=== PATIENT | male | born 1950 | race Caucasian/White ===

== ENCOUNTER 2024-10-15 09:11 | Inpatient (IN) | payer MEDICARE, BC ==
--- NOTE | 2024-10-15 10:00 | ED ---
Abdominal Pain HPI - General Chief Complaint: Abdominal Pain Stated Complaint: ABD pain/back pain/vomitting Time Seen by Provider: 10/15/24 09:20 Source: patient, RN notes reviewed Mode of arrival: ambulatory Limitations: no limitations - History of Present Illness Initial Comments: This is a 74-year-old male who presents to the emergency department for abdominal pain, nausea, and vomiting. States that it started last night. Abdominal pain is in the center of the mid to upper abdomen. Patient states that his abdomen also feels distended. He had a similar episode about 6 months ago where his abdomen felt distended and he was nauseous. However, states that it resolved on its own and was not as severe. He was not evaluated at that time and is unsure what caused it. MD Complaint: abdominal pain - Related Data Home Medications Medication Instructions Recorded Confirmed Losartan Potassium [Cozaar] 25 mg PO DAILY 08/18/23 10/15/24 Rosuvastatin Calcium 5 mg PO Q48H 08/18/23 10/15/24 Allergies Allergy/AdvReac Type Severity Reaction Status Date / Time Latex, Natural Rubber AdvReac Rash/Hives Verified 10/15/24 12:50 Review of Systems ROS Statement: Those systems with pertinent positive or pertinent negative responses have been documented in the HPI. ROS Other: All systems not noted in ROS Statement are negative. Past Medical History Past Medical History: Hyperlipidemia, Hypertension Additional Past Medical History / Comment(s): Asbestosis History of Any Multi-Drug Resistant Organisms: None Reported Past Surgical History: Bowel Resection, Hernia Repair Past Psychological History: No Psychological Hx Reported Smoking Status: Never smoker Past Alcohol Use History: Occasional Past Drug Use History: None Reported General Exam Limitations: no limitations General appearance: alert, in no apparent distress Head exam: Present: atraumatic, normocephalic, normal inspection Respiratory exam: Present: normal lung sounds bilaterally. Absent: respiratory distress, wheezes, rales, rhonchi, stridor Cardiovascular Exam: Present: regular rate, normal rhythm, normal heart sounds. Absent: systolic murmur, diastolic murmur, rubs, gallop, clicks GI/Abdominal exam: Present: distended, tenderness (diffuse) Neurological exam: Present: alert, oriented X3, CN II-XII intact Psychiatric exam: Present: normal affect, normal mood Skin exam: Present: warm, dry, intact, normal color. Absent: rash Course Vital Signs 10/15/24 10/15/24 10/15/24 09:33 12:52 15:00 Temperature 97.6 F 99.0 F Pulse Rate 86 83 85 Respiratory 18 18 18 Rate Blood Pressure 158/84 145/81 147/94 O2 Sat by Pulse 96 90 L Oximetry Medical Decision Making - Medical Decision Making This is a 74-year-old male who presents to the emergency department for abdominal pain. Was pt. sent in by a medical professional or institution? @ -No Did you speak to anyone other than the patient for history? @ -No Did you review nursing and triage notes? @ -Yes, and I agree, it is accurate with regards to the patient's symptoms. Were old charts reviewed? @ -No Differential Diagnosis? @ -Differential Abdominal Pain Men: Appendicitis, cholecystitis, diverticulosis, ischemic bowel, pancreatitis, hepatitis, UTI, gastroenteritis, AAA, incarcerated hernia, bowel obstruction, constipation, inflammatory bowel, hepatitis, peptic ulcer disease, splenic infarction, perforated viscus, testicular torsion, this is not meant to be an all-inclusive list EKG interpreted by me (3pts min.)? @ -EKG interpreted by me demonstrating the following: Sinus rhythm. Ventricular rate 89 bpm, CO interval 146 ms, QRS duration 106 ms, QTc 422 ms. X-rays interpreted by me (1pt min.)? @ -Not obtained CT interpreted by me (1pt min.)? @ -CT scan of the abdomen and pelvis obtained. My interpretation identifies fluid-filled prominent small bowel loops. U/S interpreted by me (1pt. min.)? @ -Not obtained What testing was considered but not performed? (CT, X-rays, U/S, labs)? Why? @ -None What meds were considered but not given? Why? @ -None Did you discuss the management of the patient with other professionals? @ -Yes, Dr. Chavez, who accepts the patient for admission. Did you reconcile home meds? @ -Yes Was smoking cessation discussed for >3mins.? @ -No Was critical care preformed (if so, how long)? @ -No Were there social determinants of health that impacted care today? How? (Homelessness, low income, unemployed, alcoholism, drug addiction, transportation, low edu. Level, literacy, decrease access to med. care, intermediate, rehab)? @ -No Was there de-escalation of care discussed even if they declined? (Discuss DNR or withdrawal of care, Hospice)? @ -No What co-morbidities impacted this encounter? (DM, HTN, Smoking, COPD, CAD, Cancer, CVA, Hep., AIDS, mental health diagnosis, sleep apnea, morbid obesity)? @ -HTN, HLD Was patient admitted / discharged? @ -Admitted. Lab work demonstrates leukocytosis with a white blood cell count of 16.7. Lactic acid elevated 2.4. CT scan of the abdomen and pelvis demonstrates findings suggestive of small bowel obstruction versus ileus likely from an enteritis. They advised further evaluation with small bowel follow- through. Findings reviewed with the patient. Symptoms were well-controlled with medication and we avoided an NG tube for the meantime. Given the leukocytosis with possible bowel obstruction, patient was started on Zosyn. Patient admitted to medicine for further management of SBO versus ileus. Consult placed for general surgery. Case discussed with ED attending Dr. Lopes. Undiagnosed new problem with uncertain prognosis? @ -None Drug Therapy requiring intensive monitoring for toxicity (Heparin, Nitro, Insulin, Cardizem)? @ -None Were any procedures done? @ -None Diagnosis/symptom? @ -SBO vs ileus Acute, or Chronic, or Acute on Chronic? @ -Acute Uncomplicated (without systemic symptoms) or Complicated (systemic symptoms)? @ -Complicated Side effects of treatment? @ -None Exacerbation, Progression, or Severe Exacerbation] @ -Not applicable Poses a threat to life or bodily function? @ -Yes, can lead to life threatening infection - Lab Data Result diagrams: 10/15/24 12:33 10/15/24 12:33 Lab Results 10/15/24 10/15/24 10/15/24 Range/Units 12:33 12:33 12:33 WBC 16.7 H (3.8-10.6) k/uL RBC 5.62 (4.30-5.90) m/uL Hgb 18.4 H (13.0-17.5) gm/dL Hct 54.8 H (39.0-53.0) % MCV 97.5 (80.0-100.0) fL MCH 32.8 (25.0-35.0) pg MCHC 33.7 (31.0-37.0) g/dL RDW 13.0 (11.5-15.5) % Plt Count 260 (150-450) k/uL MPV 7.7 Neutrophils % 88 % Lymphocytes % 6 % Monocytes % 5 % Eosinophils % 0 % Basophils % 0 % Neutrophils # 14.8 H (1.3-7.7) k/uL Lymphocytes # 1.0 (1.0-4.8) k/uL Monocytes # 0.8 (0-1.0) k/uL Eosinophils # 0.1 (0-0.7) k/uL Basophils # 0.0 (0-0.2) k/uL Sodium 139 (137-145) mmol/L Potassium 5.1 (3.5-5.1) mmol/L Chloride 97 L (98-107) mmol/L Carbon Dioxide 30 (22-30) mmol/L Anion Gap 12 mmol/L BUN 20 (9-20) mg/dL Creatinine 1.00 (0.66-1.25) mg/dL Est GFR (CKD-EPI)AfAm 84 (>60 ml/min/1.73 sqM) Est GFR (CKD-EPI)NonAf 73 (>60 ml/min/1.73 sqM) Glucose 149 H (74-99) mg/dL Lactic Ac Sepsis Rflx Plasma Lactic Acid Erasto 2.4 H* (0.7-2.0) mmol/L Calcium 10.0 (8.4-10.2) mg/dL Total Bilirubin 2.0 H (0.2-1.3) mg/dL AST 35 (17-59) U/L ALT 43 (4-49) U/L Alkaline Phosphatase 47 (38-126) U/L Total Protein 9.6 H (6.3-8.2) g/dL Albumin 5.4 H (3.5-5.0) g/dL Amylase 57 (30-110) U/L Lipase 107 (23-300) U/L Urine Color Urine Appearance (Clear) Urine pH (5.0-8.0) Ur Specific [place] (1.001-1.035) Urine Protein (Negative) Urine Glucose (UA) (Negative) Urine Ketones (Negative) Urine Blood (Negative) Urine Nitrite (Negative) Urine Bilirubin (Negative) Urine Urobilinogen (<2.0) mg/dL Ur Leukocyte Esterase (Negative) Urine RBC (0-5) /hpf Urine WBC (0-5) /hpf Ur Squamous Epith Cells (0-4) /hpf Amorphous Sediment (None) /hpf Hyaline Casts (0-2) /lpf Urine Mucus (None) /hpf 10/15/24 10/15/24 Range/Units 12:52 13:23 WBC (3.8-10.6) k/uL RBC (4.30-5.90) m/uL Hgb (13.0-17.5) gm/dL Hct (39.0-53.0) % MCV (80.0-100.0) fL MCH (25.0-35.0) pg MCHC (31.0-37.0) g/dL RDW (11.5-15.5) % Plt Count (150-450) k/uL MPV Neutrophils % % Lymphocytes % % Monocytes % % Eosinophils % % Basophils % % Neutrophils # (1.3-7.7) k/uL Lymphocytes # (1.0-4.8) k/uL Monocytes # (0-1.0) k/uL Eosinophils # (0-0.7) k/uL Basophils # (0-0.2) k/uL Sodium (137-145) mmol/L Potassium (3.5-5.1) mmol/L Chloride (98-107) mmol/L Carbon Dioxide (22-30) mmol/L Anion Gap mmol/L BUN (9-20) mg/dL Creatinine (0.66-1.25) mg/dL Est GFR (CKD-EPI)AfAm (>60 ml/min/1.73 sqM) Est GFR (CKD-EPI)NonAf (>60 ml/min/1.73 sqM) Glucose (74-99) mg/dL Lactic Ac Sepsis Rflx Y Plasma Lactic Acid Erasto (0.7-2.0) mmol/L Calcium (8.4-10.2) mg/dL Total Bilirubin (0.2-1.3) mg/dL AST (17-59) U/L ALT (4-49) U/L Alkaline Phosphatase (38-126) U/L Total Protein (6.3-8.2) g/dL Albumin (3.5-5.0) g/dL Amylase (30-110) U/L Lipase (23-300) U/L Urine Color Yellow Urine Appearance Cloudy (Clear) Urine pH 5.5 (5.0-8.0) Ur Specific [place] 1.034 (1.001-1.035) Urine Protein 1+ H (Negative) Urine Glucose (UA) Trace H (Negative) Urine Ketones 1+ H (Negative) Urine Blood Negative (Negative) Urine Nitrite Negative (Negative) Urine Bilirubin 1+ H (Negative) Urine Urobilinogen 2.0 (<2.0) mg/dL Ur Leukocyte Esterase Negative (Negative) Urine RBC 1 (0-5) /hpf Urine WBC 1 (0-5) /hpf Ur Squamous Epith Cells <1 (0-4) /hpf Amorphous Sediment Rare H (None) /hpf Hyaline Casts 9 H (0-2) /lpf Urine Mucus Many H (None) /hpf - Radiology Data Radiology results: report reviewed, image reviewed Disposition Clinical Impression: Partial small bowel obstruction Disposition: ADMITTED IP TO THIS [facility] Referrals: Bib Fleming MD [Primary Care Provider] - 1-2 days
[2024-10-15] MEDS: MORPHINE SULFATE 4 MG/ML SYRINGE IVP STA (12:39)
[2024-10-15] MEDS: ONDANSETRON 4 MG/2 ML VIAL IVP STA (12:45)
[2024-10-15] MEDS: FAMOTIDINE 20 MG/2 ML VIAL IV STA (12:45)
[2024-10-15 13:01] LABS: ALT 43 U/L (4-49); African American GFR (CKD) 84 (>60 ml/min/1.73 sqM); Albumin 5.4 g/dL (3.5-5.0); Amylase 57 U/L (30-110); Anion Gap 12 mmol/L; Blood Urea Nitrogen 20 mg/dL (9-20); Carbon Dioxide 30 mmol/L (22-30); Chloride 97 mmol/L (98-107); Glucose 149 mg/dL (74-99); Lipase 107 U/L (23-300); Non-African American GFR(CKD) 73 (>60 ml/min/1.73 sqM); Sodium 139 mmol/L (137-145); Total Protein 9.6 g/dL (6.3-8.2)
[2024-10-15 13:03] LABS: Basophils % (A) 0 %; Eosinophils # (A) 0.1 k/uL (0-0.7); Eosinophils % (A) 0 %; HCT 54.8 % (39.0-53.0); HGB 18.4 gm/dL (13.0-17.5); Lymphocytes % (A) 6 %; MCH 32.8 pg (25.0-35.0); MCHC 33.7 g/dL (31.0-37.0); MCV 97.5 fL (80.0-100.0); Mean Platelet Volume 7.7; Monocytes # (A) 0.8 k/uL (0-1.0); Monocytes % (A) 5 %; Neutrophils # (A) 14.8 k/uL (1.3-7.7); Neutrophils % (A) 88 %; Platelet Count 260 k/uL (150-450); RBC 5.62 m/uL (4.30-5.90); WBC 16.7 k/uL (3.8-10.6)
[2024-10-15 13:07] LABS: Amorphous Sediment,Urine Rare /hpf; Appearance,Urine Cloudy (Clear); Bilirubin,Urine 1+ (Negative); Blood,Urine Negative (Negative); Color,Urine Yellow; Glucose,Urine (UA) Trace (Negative); Hyaline Casts,Urine 9 /lpf (0-2); Ketones,Urine 1+ (Negative); Leukocyte Esterase,Urine Negative (Negative); Mucus,Urine Many /hpf; Nitrite,Urine Negative (Negative); PH, Urine 5.5 (5.0-8.0); Protein,Urine 1+ (Negative); RBC,Urine 1 /hpf (0-5); Specific Gravity,Urine 1.034 (1.001-1.035); Squamous Epithelial Cell,Urine <1 /hpf (0-4); WBC,Urine 1 /hpf (0-5)
[2024-10-15 13:17] LABS: AST 35 U/L (17-59); Alkaline Phosphatase 47 U/L (38-126); Potassium 5.1 mmol/L (3.5-5.1)
[2024-10-15] MEDS: SODIUM CHLORIDE 0.9% 1,000 ML IV STA (13:27)
--- NOTE | 2024-10-15 14:24 | CT ---
EXAMINATION TYPE: CT abdomen pelvis w con CT DLP: 1023.8 mGycm, Automated exposure control for dose reduction was used. DATE OF EXAM: 10/15/2024 1:59 PM COMPARISON: Chest radiograph 08/18/2023 CLINICAL INDICATION:Male, 74 years old with history of Abdominal pain and distention; Abdominal pain and distention TECHNIQUE: Standard CT of the abdomen and pelvis following the administration of 100 cc of Isovue 3 00 IV contrast material. Coronal and sagittal reformats were performed. FINDINGS: LOWER CHEST: Thick calcified pleural plaques with pleural thickening within the bilateral lower lungs . Bilateral lower lobe linear scarring and/or atelectasis. ABDOMEN LIVER: Unremarkable GALLBLADDER AND BILE DUCTS: Unremarkable. PANCREAS: Unremarkable. SPLEEN: Unremarkable. ADRENAL GLANDS: Unremarkable. KIDNEYS AND URETERS: No evidence of hydronephrosis . The kidneys enhance symmetrically. Bilateral joel al cysts with largest measuring from the interpolar left kidney measuring up to 2.9 cm. Punctate nodu le of left renal calculus. Contrast is demonstrated within both collecting systems on the delayed pha se. PELVIS BLADDER: Underdistended, limiting evaluation. REPRODUCTIVE: Unremarkable. ABDOMEN & PELVIS STOMACH AND BOWEL: Gastric distention.Mid and proximal small bowel dilatation with air-fluid levels m easuring up to 3.5 cm in diameter. There is a focal region of mild mid short segment small bowel wall thickening which resolves on delayed imaging. There is fluid-filled prominent small bowel loops dist al to this region. Collapsed distal small bowel without focal transition point. No pneumatosis. Sigmo id diverticulosis without evidence for acute diverticulitis. Postsurgical changes with a colonic anas tomosis within the left midabdomen. The appendix is within normal limits. PERITONEUM: No evidence of pneumoperitoneum or free fluid. VASCULATURE: Mild atherosclerotic calcifications are present throughout the abdominal aorta and its b ranches. No evidence of aortic aneurysm. Pelvic phleboliths. MUSCULOSKELETAL: No acute osseous abnormalities. Degenerative changes of bilateral SI joints. LYMPH NODES: No evidence for lymphadenopathy. SOFT TISSUE/ABDOMINAL WALL: Surgical changes of the midline anterior abdominal wall with scarring. IMPRESSION: 1. Findings of partial small bowel obstruction versus ileus likely from an enteritis. Consider furth er evaluation with small bowel follow-through. 2. Colonic diverticulosis without evidence for acute diverticulitis. 3. Extensive calcified pleural plaques. 4. Nonobstructive punctate left renal calculus. [facility], , 10/15/2024 2:22 PM
[2024-10-15] MEDS: PIPERACILLIN-TAZOBACTAM 3.375 GM in SODIUM CHLORIDE 0.9% 100 ML IVPB ONE (15:08)
[2024-10-15] MEDS: LOSARTAN 25 MG TAB PO SCH (15:08)
[2024-10-15] MEDS ORDERED: HYDROcodone/APAP 5-325MG 1 EACH TAB PO PRN (15:25)
[2024-10-15] MEDS ORDERED: MORPHINE SULFATE 4 MG/ML SYRINGE IV PRN (15:25)
[2024-10-15] MEDS ORDERED: KETOROLAC 15 MG/ML 1 ML VIAL IVP PRN (15:25)
[2024-10-15] MEDS ORDERED: NALOXONE 0.4 MG/ML 1 ML VIAL IV PRN (15:25)
--- NOTE | 2024-10-15 15:43 | P.HPIM ---
History of Present Illness H&P Date: 10/15/24 History of Presenting Illness: Patient is a pleasant 74-year-old male with a past medical history of hypertension, hyperlipidemia, and previous small bowel obstruction status post bowel resection 35 years ago. Presented to the emergency department with a ief complaint of abdominal pain, nausea, and vomiting. Patient reports symptoms began approximately 10 PM last night. He reports experiencing abdominal distention over the past week and states last night experiencing diffuse abdominal pain worse in mid abdomen accompanied by recurrent episodes of nausea and vomiting. Patient reports his last bowel movement was just prior to onset of this pain and states it was normal soft and formed. Denies having any fevers, chills, diaphoresis, chest pain, palpitations, shortness of breath, hematemesis, melena, or hematochezia. Upon arrival to our facility, patient underwent evaluation in the emergency department. Vital signs upon arrival show blood pressure 158/84, heart rate 86, respiratory rate 18, temp 97.6 F, and SpO2 of 96% on room air. EKG completed showing normal sinus mechanism. Labs completed and reviewed. CBC showing leukocytosis with WBC count of 16.7. BMP showing high anion gap metabolic alkalosis with chloride of 97, bicarb of 30, and anion gap of 12. Blood glucose 149. Lactic acid 2.4. Liver profile showing hyperbilirubinemia with total bili of 2.0. Amylase and lipase normal findings. Urinalysis positive for protein, glucose, and ketones but negative for infection. CT abdomen and pelvis showing partial small bowel obstruction versus ileus likely from an enteritis, colonic diverticulosis without evidence for acute diverticulitis, and extensive calcified pleural plaques with nonobstructive punctate of left renal calculi. Review of systems: Pertinent positives and negatives as discussed in HPI, a complete review of systems was performed and all other systems are negative. Physical exam: Vital signs reviewed and stable. General: Nontoxic, no distress and appears stated age. Derm: Skin warm and dry, normal coloration for ethnicity. Head: Atraumatic, normocephalic and symmetric. Eyes: EOM's intact, no lid lag, and anicteric sclera Mouth: no lip lesions, mucus membranes moist Cardiovascular: regular rate and rhythm with normal S1S2, no murmur, positive posterior tibial pulses bilaterally, and cap refill < 2 seconds. Lungs: Respirations even, regular, and unlabored on room air. Lungs CTA bilaterally, no rhonchi, no rales, no wheezing, and no accessory muscle usage. Abdominal: soft, nontender to palpation, no guarding, no appreciable organomegaly Ext: ROM intact. No gross muscle atrophy, no edema, no contractures Neuro: Speech clear, face symmetrical and CN II-XII grossly intact with no noted focal neuro deficits Psych: Alert and oriented to person, place, time, and situation. Appropriate and pleasant affect. Assessment and Plan of Care: Small bowel obstruction Leukocytosis, unable to rule out enteritis -Consult placed to general surgery -Order placed for insertion of NG tube to low intermittent suction -Strict NPO -IV fluid hydration with 0.9% normal saline at 100 cc/h -Continue IV antibiotic with Zosyn 3.375 g every 8 hours -Continue close monitoring with repeat a.m. labs. -Telemetry monitoring -Antiemetic with Zofran 4 mg IVP every 8 hours and Compazine 10 mg IVP every 6 hours as needed for nausea and vomiting uncontrolled by Zofran History of asbestosis -CT revealing extensive calcified pleural plaques, patient with known history of asbestosis. Denies shortness of breath or respiratory complaints at this time. Hypertension -Vital signs and continue daily medication regimen with losartan 25 mg daily. Hyperlipidemia -Continue daily medication regimen with atorvastatin 10 mg nightly. Data and imaging reviewed: As stated above in HPI The patient is admitted with an anticipated greater than 2 midnight stay for evaluation of small bowel obstruction CODE STATUS: Full code DVT prophylaxis: Lovenox Anticipated discharge date: Pending clinical course Anticipated discharge place: Home Patient was seen independently by Nurse Practitioner. This document was prepared using [employer] dictation software. Please allow for errors in storage garage manager while rare they do occur. Sai Nassar NP rendered care for this patient independently, reviewed the findings and plan as documented in the note above and agree with plan. I did not physically speak with or examine the patient on this date. . Past Medical History Past Medical History: Hyperlipidemia, Hypertension Additional Past Medical History / Comment(s): Asbestosis History of Any Multi-Drug Resistant Organisms: None Reported Past Surgical History: Bowel Resection, Hernia Repair Past Psychological History: No Psychological Hx Reported Smoking Status: Never smoker Past Alcohol Use History: Occasional Past Drug Use History: None Reported Medications and Allergies Home Medications Medication Instructions Recorded Confirmed Type Losartan Potassium [Cozaar] 25 mg PO DAILY 08/18/23 10/15/24 History Rosuvastatin Calcium 5 mg PO Q48H 08/18/23 10/15/24 History Allergies Allergy/AdvReac Type Severity Reaction Status Date / Time Latex, Natural Rubber AdvReac Rash/Hives Verified 10/15/24 12:50 Physical Exam Vitals: Vital Signs Temp Pulse Resp BP Pulse Ox 10/15/24 15:00 85 18 147/94 10/15/24 12:52 99.0 F 83 18 145/81 90 L 10/15/24 09:33 97.6 F 86 18 158/84 96 Intake and Output 10/15/24 10/15/24 10/15/24 06:59 14:59 22:59 Other: Weight 86.183 kg Results CBC & Chem 7: 10/15/24 12:33 10/15/24 12:33 Labs: Abnormal Lab Results - Last 24 Hours (Table) 10/15/24 10/15/24 10/15/24 Range/Units 12:33 12:33 12:33 WBC 16.7 H (3.8-10.6) k/uL Hgb 18.4 H (13.0-17.5) gm/dL Hct 54.8 H (39.0-53.0) % Neutrophils # 14.8 H (1.3-7.7) k/uL Chloride 97 L (98-107) mmol/L Glucose 149 H (74-99) mg/dL Plasma Lactic Acid Erasto 2.4 H* (0.7-2.0) mmol/L Total Bilirubin 2.0 H (0.2-1.3) mg/dL Total Protein 9.6 H (6.3-8.2) g/dL Albumin 5.4 H (3.5-5.0) g/dL Urine Protein (Negative) Urine Glucose (UA) (Negative) Urine Ketones (Negative) Urine Bilirubin (Negative) Amorphous Sediment (None) /hpf Hyaline Casts (0-2) /lpf Urine Mucus (None) /hpf 10/15/24 Range/Units 12:52 WBC (3.8-10.6) k/uL Hgb (13.0-17.5) gm/dL Hct (39.0-53.0) % Neutrophils # (1.3-7.7) k/uL Chloride (98-107) mmol/L Glucose (74-99) mg/dL Plasma Lactic Acid Erasto (0.7-2.0) mmol/L Total Bilirubin (0.2-1.3) mg/dL Total Protein (6.3-8.2) g/dL Albumin (3.5-5.0) g/dL Urine Protein 1+ H (Negative) Urine Glucose (UA) Trace H (Negative) Urine Ketones 1+ H (Negative) Urine Bilirubin 1+ H (Negative) Amorphous Sediment Rare H (None) /hpf Hyaline Casts 9 H (0-2) /lpf Urine Mucus Many H (None) /hpf
[2024-10-15] MEDS ORDERED: DEXTROSE 50% SYRINGE 50 ML IVP PRN ×2 (16:04)
[2024-10-15] MEDS: SODIUM CHLORIDE 0.9% 1,000 ML IV SCH (16:33)
[2024-10-15] MEDS: LORazepam 2 MG/ML INJ IV STA (20:41)
[2024-10-15] MEDS: PIPERACILLIN-TAZOBACTAM 3.375 GM in SODIUM CHLORIDE 0.9% 100 ML IVPB SCH (21:19)
[2024-10-16 01:36] LABS: Glucose,Whole Blood 115 mg/dL (70-110)
[2024-10-16] MEDS: ATORVASTATIN 10 MG TAB PO SCH (08:42)
[2024-10-16] MEDS: ENOXAPARIN 40 MG/0.4 ML SYRINGE SQ SCH (08:42)
[2024-10-16] MEDS: PANTOPRAZOLE 40 MG/10 ML VIAL IV SCH (08:47)
[2024-10-16 10:29] LABS: HCT 42.9 % (39.6-50.0); HGB 14.2 g/dL (13.0-17.0); MCH 33.1 pg (27.0-32.0); MCHC 33.1 g/dL (32.0-37.0); Mean Platelet Volume 9.9 FL (9.5-12.2); NRBC Per 100 WBC 0 X 10*3/uL (0.00-0.01); Platelet Count 190 X 10*3/uL (140-440); RBC 4.29 X 10*6/uL (4.40-5.60); WBC 6.81 X 10*3/uL (4.50-10.00)
[2024-10-16 10:59] LABS: ALT 34 U/L (10-49); AST 18 U/L (14-35); Albumin 3.7 g/dL (3.8-4.9); Albumin/Globulin Ratio 1.48 Ratio (1.60-3.17); Alkaline Phosphatase 41 U/L (41-126); Blood Urea Nitrogen 17.8 mg/dL (9.0-27.0); Calcium 8.4 mg/dL (8.7-10.3); Carbon Dioxide 26.9 mmol/L (21.6-31.8); Chloride 107 mmol/L (96-109); Globulin 2.5 g/dL (1.6-3.3); Glucose 107 mg/dL (70-110); Magnesium 2.1 mg/dL (1.5-2.4); Potassium 4.5 mmol/L (3.5-5.5); Sodium 141 mmol/L (135-145); Total Bilirubin 1.1 mg/dL (0.3-1.2); Total Protein 6.2 g/dL (6.2-8.2)
--- NOTE | 2024-10-16 13:10 | FL ---
EXAMINATION TYPE: FL small bowel follow through DATE OF EXAM: 10/16/2024 12:17 PM COMPARISON: None. CLINICAL INDICATION: Male, 74 years old with history of abdominal pain, follow up on PSBO, Abdominal Pain TECHNIQUE: The patient was asked to ingest liquid Barium and incremental frontal abdominal radiograph s were then taken until contrast was visualized in the cecum. FINDINGS: The patient ingested 360 mL gastrografin without difficulty. Small bowel follow-through was performed with transit time of 60 minutes. Small bowel loops appear to be of normal caliber and demonstrate normal mucosal fold pattern. No evidence for intrinsic or extrinsic mass. No evidence for mucosal abnormality. I do not see evidence for Cr ohn's disease. Postoperative changes of partial left colectomy. Calcified pleural plaques noted at the lung bases. IMPRESSION: No obstructive changes seen. [facility], , 10/16/2024 1:08 PM
--- NOTE | 2024-10-16 13:13 | P.GSCN ---
History of Present Illness Consult date: 10/16/24 History of present illness: CHIEF COMPLAINT: Abdominal pain HISTORY OF PRESENT ILLNESS: This is a 74-year-old male who presented to the ER with complaints of abdominal pain that started yesterday. Patient reports that he had cramping pain that moved upward in waves from the lower abdomen up into the upper abdomen. He has been nauseous. He reported having multiple episodes of vomiting for about 10 hours straight. He does report having a small bowel movement yesterday. And has had flatus today. Patient reports having a hard distended abdomen prior to coming in and now abdomen is softer. He had a CT scan completed reporting findings of partial small bowel obstruction versus ileus from an enteritis. Patient also reports that he had a bowel resection about 35 years ago for a benign polyp, also history of a hernia repair. Last colonoscopy was about 5 years ago patient reports being diagnosed with diverticulitis, colitis and colon polyps. Surgical service has been consulted for possible partial small bowel obstruction versus ileus. Patient reports o verall feeling better since admission. PAST MEDICAL HISTORY: Hyperlipidemia, hypertension, asbestosis PAST SURGICAL HISTORY: Bowel resection, hernia repair MEDICATIONS: See below ALLERGIES: See below SOCIAL HISTORY: No illicit drug use. REVIEW OF SYSTEMS: CONSTITUTIONAL: Denies fever or chills. HEENT: Denies blurred vision, vision changes, or eye pain. Denies hemoptysis CARDIOVASCULAR: Denies chest pain or pressure. RESPIRATORY: No shortness of breath. GASTROINTESTINAL: See HPI for pertinent findings HEMATOLOGIC: Denies bleeding disorders. GENITOURINARY: Denies any blood in urine or increased urinary frequency. SKIN: Denies pruitis. Denies rash. PHYSICAL EXAM: VITAL SIGNS: Reviewed GENERAL: Well-developed in no acute distress. HEENT: No sclera icterus. Extraocular movements grossly intact. Moist buccal mucosa. Head is atraumatic, normocephalic. No nasal drainage. ABDOMEN: Soft. Mildly distended. Minimal discomfort with palpation NEUROLOGIC: Alert and oriented. Cranial nerves II through XII grossly intact. LABORATORY DATA: WBC 16.7 down to 6.8 plt 190 Sodium 141 potassium 4.5 creatinine 1.0 Lactic acid 2.4 down to 1.7 IMAGING: CT scan abdomen pelvis reporting findings of partial small bowel obstruction versus ileus likely from enteritis. Colonic diverticulosis without evidence for acute diverticulitis. Extensive calcified pleural plaques. Nonobstructive punctate left renal calculus ASSESSMENT: 1. Partial small bowel obstruction 2. History of prior abdominal surgeries PLAN: -Small bowel follow-through with Gastrografin ordered for diagnostic and therapeutic reasons for evaluation of partial small bowel obstruction -Keep patient n.p.o. -Continue IV fluids -Will hold off on NG tube placement for now since patient is feeling better Physician Doctor'S Assistant note has been reviewed by physician. Signing provider agrees with the documented findings, assessment, and plan of care. Attestation Patient seen and examined at bedside. Presented with chief complaint of abdominal pain, nausea, vomiting and abdomen to min distention. He states that this started approximately 24 hours prior to his arrival and he has been unable to keep anything down. Since his arrival he has not vomited, however he states that he had a 4-hour wait in the emergency room waiting area and did have multiple emesis episodes there. CT of the abdomen pelvis was reviewed with partial small bowel obstruction versus ileus. He does have a history of colon resection in the past. He states that he has had some flatus since being in the emergency department and abdominal distention has improved. Plan is for small bowel follow-through for evaluation of obstruction. Further recommendations to be made after completed. Markus Mancini DO Past Medical History Past Medical History: Hyperlipidemia, Hypertension Additional Past Medical History / Comment(s): Asbestosis History of Any Multi-Drug Resistant Organisms: None Reported Past Surgical History: Bowel Resection, Hernia Repair Past Psychological History: No Psychological Hx Reported Smoking Status: Never smoker Past Alcohol Use History: Occasional Past Drug Use History: None Reported Medications and Allergies Home Medications Medication Instructions Recorded Confirmed Type Losartan Potassium [Cozaar] 25 mg PO DAILY 08/18/23 10/15/24 History Rosuvastatin Calcium 5 mg PO Q48H 08/18/23 10/15/24 History Allergies Allergy/AdvReac Type Severity Reaction Status Date / Time Latex, Natural Rubber AdvReac Rash/Hives Verified 10/15/24 12:50 Surgical - Exam Osteopathic Statement: *. No significant issues noted on an osteopathic structural exam other than those noted in the History and Physical/Consult. Vital Signs Temp Pulse Resp BP Pulse Ox 97.6 F 86 18 158/84 96 10/15/24 09:33 10/15/24 09:33 10/15/24 09:33 10/15/24 09:33 10/15/24 09:33 Results - Labs 10/16/24 06:11 10/16/24 06:11 Abnormal Lab Results - Last 24 Hours (Table) 10/15/24 10/15/24 10/15/24 Range/Units 12:33 12:33 12:33 WBC 16.7 H (3.8-10.6) k/uL Hgb 18.4 H (13.0-17.5) gm/dL Hct 54.8 H (39.0-53.0) % Neutrophils # 14.8 H (1.3-7.7) k/uL Chloride 97 L (98-107) mmol/L Glucose 149 H (74-99) mg/dL POC Glucose (mg/dL) (70-110) mg/dL Plasma Lactic Acid Erasto 2.4 H* (0.7-2.0) mmol/L Total Bilirubin 2.0 H (0.2-1.3) mg/dL Total Protein 9.6 H (6.3-8.2) g/dL Albumin 5.4 H (3.5-5.0) g/dL Urine Protein (Negative) Urine Glucose (UA) (Negative) Urine Ketones (Negative) Urine Bilirubin (Negative) Amorphous Sediment (None) /hpf Hyaline Casts (0-2) /lpf Urine Mucus (None) /hpf 10/15/24 10/16/24 Range/Units 12:52 01:35 WBC (3.8-10.6) k/uL Hgb (13.0-17.5) gm/dL Hct (39.0-53.0) % Neutrophils # (1.3-7.7) k/uL Chloride (98-107) mmol/L Glucose (74-99) mg/dL POC Glucose (mg/dL) 115 H (70-110) mg/dL Plasma Lactic Acid Erasto (0.7-2.0) mmol/L Total Bilirubin (0.2-1.3) mg/dL Total Protein (6.3-8.2) g/dL Albumin (3.5-5.0) g/dL Urine Protein 1+ H (Negative) Urine Glucose (UA) Trace H (Negative) Urine Ketones 1+ H (Negative) Urine Bilirubin 1+ H (Negative) Amorphous Sediment Rare H (None) /hpf Hyaline Casts 9 H (0-2) /lpf Urine Mucus Many H (None) /hpf Diabetes panel 10/15/24 Range/Units 12:33 Sodium 139 (137-145) mmol/L Potassium 5.1 (3.5-5.1) mmol/L Chloride 97 L (98-107) mmol/L Carbon Dioxide 30 (22-30) mmol/L BUN 20 (9-20) mg/dL Creatinine 1.00 (0.66-1.25) mg/dL Glucose 149 H (74-99) mg/dL Calcium 10.0 (8.4-10.2) mg/dL AST 35 (17-59) U/L ALT 43 (4-49) U/L Alkaline Phosphatase 47 (38-126) U/L Total Protein 9.6 H (6.3-8.2) g/dL Albumin 5.4 H (3.5-5.0) g/dL Calcium panel 10/15/24 Range/Units 12:33 Calcium 10.0 (8.4-10.2) mg/dL Albumin 5.4 H (3.5-5.0) g/dL Pituitary panel 10/15/24 Range/Units 12:33 Sodium 139 (137-145) mmol/L Potassium 5.1 (3.5-5.1) mmol/L Chloride 97 L (98-107) mmol/L Carbon Dioxide 30 (22-30) mmol/L BUN 20 (9-20) mg/dL Creatinine 1.00 (0.66-1.25) mg/dL Glucose 149 H (74-99) mg/dL Calcium 10.0 (8.4-10.2) mg/dL Adrenal panel 10/15/24 Range/Units 12:33 Sodium 139 (137-145) mmol/L Potassium 5.1 (3.5-5.1) mmol/L Chloride 97 L (98-107) mmol/L Carbon Dioxide 30 (22-30) mmol/L BUN 20 (9-20) mg/dL Creatinine 1.00 (0.66-1.25) mg/dL Glucose 149 H (74-99) mg/dL Calcium 10.0 (8.4-10.2) mg/dL Total Bilirubin 2.0 H (0.2-1.3) mg/dL AST 35 (17-59) U/L ALT 43 (4-49) U/L Alkaline Phosphatase 47 (38-126) U/L Total Protein 9.6 H (6.3-8.2) g/dL Albumin 5.4 H (3.5-5.0) g/dL
--- NOTE | 2024-10-16 15:57 | P.PN ---
Subjective Progress Note Date: 10/16/24 Hospital Course: Patient is a pleasant 74-year-old male with a past medical history of hypertension, hyperlipidemia, and previous small bowel obstruction status post bowel resection 35 years ago. Presented to the emergency department with a chief complaint of abdominal pain, nausea, and vomiting. Patient reports symptoms began approximately 10 PM last night. He reports experiencing abdominal distention over the past week and states last night experiencing d iffuse abdominal pain worse in mid abdomen accompanied by recurrent episodes of nausea and vomiting. Patient reports his last bowel movement was just prior to onset of this pain and states it was normal soft and formed. Denies having any fevers, chills, diaphoresis, chest pain, palpitations, shortness of breath, hematemesis, melena, or hematochezia. Upon arrival to our facility, patient underwent evaluation in the emergency department. Vital signs upon arrival show blood pressure 158/84, heart rate 86, respiratory rate 18, temp 97.6 F, and SpO2 of 96% on room air. EKG completed showing normal sinus mechanism. Labs completed and reviewed. CBC showing leukocytosis with WBC count of 16.7. BMP showing high anion gap metabolic alkalosis with chloride of 97, bicarb of 30, and anion gap of 12. Blood glucose 149. Lactic acid 2.4. Liver profile showing hyperbilirubinemia with total bili of 2.0. Amylase and lipase normal findings. Urinalysis positive for protein, glucose, and ketones but negative for infection. CT abdomen and pelvis showing partial small bowel obstruction versus ileus likely from an enteritis, colonic diverticulosis without evidence for acute diverticulitis, and extensive calcified pleural plaques with nonobstructive punctate of left renal calculi. Physical exam: Vital signs reviewed and stable. General: Nontoxic, no distress and appears stated age. Derm: Skin warm and dry, normal coloration for ethnicity. Head: Atraumatic, normocephalic and symmetric. Eyes: EOM's intact, no lid lag, and anicteric sclera Mouth: no lip lesions, mucus membranes moist Cardiovascular: regular rate and rhythm with normal S1S2, no murmur, positive posterior tibial pulses bilaterally, and cap refill < 2 seconds. Lungs: Respirations even, regular, and unlabored on room air. Lungs CTA bilaterally, no rhonchi, no rales, no wheezing, and no accessory muscle usage. Abdominal: soft, nontender to palpation, no guarding, no appreciable organomegaly Ext: ROM intact. No gross muscle atrophy, no edema, no contractures Neuro: Speech clear, face symmetrical and CN II-XII grossly intact with no noted focal neuro deficits Psych: Alert and oriented to person, place, time, and situation. Appropriate and pleasant affect. Assessment and Plan of Care: Partial Small bowel obstruction vs ileus Leukocytosis, resolved -General Surgery following, discussed case with general surgery MORTGAGE COUNSELOR and patient was sent patient for small bowel follow-through with Gastrografin -NG tube was not inserted as previously ordered as nausea and vomiting resolved and abdominal pain slowly improving, patient does report having 3 episodes of liquid stools since drinking Gastrografin. -Small bowel follow-through with Gastrografin negative for obstruction, likely partial small bowel obstruction versus ileus resolved. -Patient's diet advanced to clear liquids at this time. -IV fluid hydration with 0.9% normal saline at 100 cc/h -Continue IV antibiotic with Zosyn 3.375 g every 8 hours -Continue close monitoring with repeat a.m. labs. -Telemetry monitoring -Antiemetic with Zofran 4 mg IVP every 8 hours and Compazine 10 mg IVP every 6 hours as needed for nausea and vomiting uncontrolled by Zofran History of asbestosis -CT revealing extensive calcified pleural plaques, patient with known history of asbestosis. Denies shortness of breath or respiratory complaints at this time. Hypertension -Vital signs and continue daily medication regimen with losartan 25 mg daily. Hyperlipidemia -Continue daily medication regimen with atorvastatin 10 mg nightly. Data and imaging reviewed: Labs completed and reviewed. CBC showing resolution of leukocytosis with WBC count decreasing from 16.7 down to 6.81 and Macrocytosis with MCV of 100.0 otherwise normal findings. BMP unremarkable. Blood glucose 107. Magnesium 2.1. Liver profile unremarkable with the exception of low albumin of 3.7. Vital signs reviewed. Blood pressure 122/92, heart rate 61, respiratory rate 18, and SpO2 of 95% on room air. CODE STATUS: Full code DVT prophylaxis: Lovenox Anticipated discharge date: Pending clinical course Anticipated discharge place: Home Patient was seen independently by Nurse Practitioner. This document was prepared using [employer] dictation software. Please allow for errors in steel erector while rare they do occur. Sai Nassar NP rendered care for this patient independently, reviewed the findings and plan as documented in the note above and agree with plan. I did not physically speak with or examine the patient on this date. . Objective - Vital Signs Vital signs: Vital Signs Temp 99.0 F 10/15/24 12:52 Pulse 70 10/16/24 06:44 Resp 18 10/16/24 06:44 BP 132/74 10/16/24 06:44 Pulse Ox 94 L 10/16/24 06:44 FiO2 Intake & Output 10/15/24 10/16/24 10/16/24 18:59 06:59 18:59 Weight 86.183 kg - Labs CBC & Chem 7: 10/16/24 06:11 10/16/24 06:11 Labs: Abnormal Lab Results - Last 24 Hours (Table) 10/15/24 10/15/24 10/15/24 Range/Units 12:33 12:33 12:33 WBC 16.7 H (3.8-10.6) k/uL Hgb 18.4 H (13.0-17.5) gm/dL Hct 54.8 H (39.0-53.0) % Neutrophils # 14.8 H (1.3-7.7) k/uL Chloride 97 L (98-107) mmol/L Glucose 149 H (74-99) mg/dL POC Glucose (mg/dL) (70-110) mg/dL Plasma Lactic Acid Erasto 2.4 H* (0.7-2.0) mmol/L Total Bilirubin 2.0 H (0.2-1.3) mg/dL Total Protein 9.6 H (6.3-8.2) g/dL Albumin 5.4 H (3.5-5.0) g/dL Urine Protein (Negative) Urine Glucose (UA) (Negative) Urine Ketones (Negative) Urine Bilirubin (Negative) Amorphous Sediment (None) /hpf Hyaline Casts (0-2) /lpf Urine Mucus (None) /hpf 10/15/24 10/16/24 Range/Units 12:52 01:35 WBC (3.8-10.6) k/uL Hgb (13.0-17.5) gm/dL Hct (39.0-53.0) % Neutrophils # (1.3-7.7) k/uL Chloride (98-107) mmol/L Glucose (74-99) mg/dL POC Glucose (mg/dL) 115 H (70-110) mg/dL Plasma Lactic Acid Erasto (0.7-2.0) mmol/L Total Bilirubin (0.2-1.3) mg/dL Total Protein (6.3-8.2) g/dL Albumin (3.5-5.0) g/dL Urine Protein 1+ H (Negative) Urine Glucose (UA) Trace H (Negative) Urine Ketones 1+ H (Negative) Urine Bilirubin 1+ H (Negative) Amorphous Sediment Rare H (None) /hpf Hyaline Casts 9 H (0-2) /lpf Urine Mucus Many H (None) /hpf
[2024-10-16 18:03] LABS: Glucose,Whole Blood 126 mg/dL (70-110)
[2024-10-17 04:33] LABS: Glucose,Whole Blood 101 mg/dL (70-110)
[2024-10-17] MEDS: ONDANSETRON 4 MG/2 ML VIAL IVP PRN (05:35)
[2024-10-17 08:46] LABS: MCH 32.5 pg (27.0-32.0); MCHC 32.6 g/dL (32.0-37.0); MCV 99.6 FL (80.0-97.0); Mean Platelet Volume 9.8 FL (9.5-12.2); NRBC Per 100 WBC 0 X 10*3/uL (0.00-0.01); Platelet Count 201 X 10*3/uL (140-440); RBC 4.62 X 10*6/uL (4.40-5.60); RDW 12.9 % (11.5-14.5); WBC 6.46 X 10*3/uL (4.50-10.00)
[2024-10-17 09:00] LABS: ALT 41 U/L (10-49); AST 25 U/L (14-35); Albumin 3.9 g/dL (3.8-4.9); Albumin/Globulin Ratio 1.44 Ratio (1.60-3.17); Alkaline Phosphatase 44 U/L (41-126); BUN/Creat Ratio 15.27 Ratio (12.00-20.00); Blood Urea Nitrogen 16.8 mg/dL (9.0-27.0); Calcium 8.7 mg/dL (8.7-10.3); Carbon Dioxide 25.8 mmol/L (21.6-31.8); Chloride 107 mmol/L (96-109); Globulin 2.7 g/dL (1.6-3.3); Glucose 98 mg/dL (70-110); Magnesium 2.3 mg/dL (1.5-2.4); Potassium 4.4 mmol/L (3.5-5.5); Sodium 142 mmol/L (135-145); Total Bilirubin 0.8 mg/dL (0.3-1.2); Total Protein 6.6 g/dL (6.2-8.2)
--- NOTE | 2024-10-17 10:05 | XR ---
EXAMINATION TYPE: XR abdomen 2V DATE OF EXAM: 10/17/2024 9:52 AM COMPARISON: 10/16/2024 CLINICAL INDICATION: Male, 74 years old with history of increased abdominal distention, nausea, pain; [facility] TECHNIQUE: Two views of the abdomen were obtained. FINDINGS: Moderate amount stool throughout the colon. The bowel gas pattern is nonspecific without di lated loops of small or large bowel. There is no evidence for organomegaly or pneumoperitoneum. The osseous structures are intact. No abnormal calcifications are present. Fecal material and gas are de monstrated throughout the colon and rectum. Left lateral surgical clips. IMPRESSION: Similar, Nonspecific bowel gas pattern without radiographic evidence for acute process. [facility], , 10/17/2024 10:03 AM
[2024-10-17] MEDS: PROCHLORPERAZINE INJ 10 MG/2 ML VIAL IVP PRN (10:27)
[2024-10-17] MEDS: ACETAMINOPHEN TAB 325 MG TAB PO PRN (10:27)
[2024-10-17 12:38] LABS: Glucose,Whole Blood 95 mg/dL (70-110)
[2024-10-17] MEDS ORDERED: ONDANSETRON 4 MG/2 ML VIAL IVP PRN (12:57)
--- NOTE | 2024-10-17 13:12 | P.PN ---
Subjective Progress Note Date: 10/17/24 SURGICAL PROGRESS NOTE CHIEF COMPLAINT: Partial small bowel obstruction HISTORY OF PRESENT ILLNESS: Patient complains of worsening nausea with abdominal distention again today. No vomiting. He did have bowel movements after the small bowel follow-through yesterday. Small bowel follow-through showed no evidence of bowel obstruction. And patient had been started on a clear liquid diet. He reports decrease in the amount of flatus that he was passing. Vital stable. WBC 6.46 Hgb 15 PHYSICAL EXAM: VITAL SIGNS: Reviewed. GENERAL: Well-developed in no acute distress. HEENT: No sclera icterus. Extraocular movements grossly intact. Moist buccal mucosa. Head is atraumatic, normocephalic. ABDOMEN: Distended. Tenderness right mid abdomen and left lower quadrant NEUROLOGIC: Alert and oriented. Cranial nerves II through XII grossly intact. ASSESSMENT: 1. Partial small bowel obstruction. Small bowel follow-through with no evidence of bowel obstruction. Today's abdominal x-ray reporting moderate amount of stool throughout the colon 2. History of prior abdominal surgeries PLAN: -Patient made n.p.o. and abdominal x-ray ordered this morning. Abdominal x-ray reports nonspecific bowel gas pattern without acute process. Does report moderate amount of stool throughout the colon. Fecal material and gas are demonstrated throughout the colon and rectum. -Keep patient n.p.o. except for ice chips -Lactulose twice daily for stool retention -Mylicon gas drops ordered for gas demonstrated throughout the colon and rectum -Encourage patient to ambulate in hallway Physician Flavor Tank Tender note has been reviewed by physician. Signing provider agrees with the documented findings, assessment, and plan of care. Objective - Vital Signs Vital signs: Vital Signs Temp 98.1 F 10/17/24 07:33 Pulse 60 10/17/24 07:33 Resp 17 10/17/24 07:33 BP 143/77 10/17/24 07:33 Pulse Ox 96 10/17/24 07:33 FiO2 Intake & Output 10/16/24 10/17/24 10/17/24 18:59 06:59 18:59 Intake Total 590 Balance 590 Weight 86.183 kg Intake: Oral 590 Other: Voiding Method Bedside Commode # Voids 1 - Labs CBC & Chem 7: 10/17/24 04:54 10/17/24 04:54 Labs: Abnormal Lab Results - Last 24 Hours (Table) 10/16/24 10/17/24 10/17/24 Range/Units 18:02 04:54 04:54 MCV 99.6 H (80.0-97.0) FL MCH 32.5 H (27.0-32.0) pg POC Glucose (mg/dL) 126 H (70-110) mg/dL Albumin/Globulin Ratio 1.44 L (1.60-3.17) Ratio Microbiology - Last 24 Hours (Table) 10/15/24 15:25 Blood Culture - Preliminary Blood
[2024-10-17] MEDS: SIMETHICONE 40 MG/0.6 ML DROPS 2,000 MG/30 ML BOTTLE PO SCH (14:26)
[2024-10-17] MEDS: LACTULOSE 20 GM/30 ML CUP PO SCH (14:35)
--- NOTE | 2024-10-17 15:56 | P.PN ---
Subjective Progress Note Date: 10/17/24 Hospital Course: Patient is a pleasant 74-year-old male with a past medical history of hypertension, hyperlipidemia, and previous small bowel obstruction status post bowel resection 35 years ago. Presented to the emergency department with a chief complaint of abdominal pain, nausea, and vomiting. Patient reports symptoms began approximately 10 PM last night. He reports experiencing abdominal distention over the past week and states last night experiencing diffuse abdominal pain worse in mid abdomen accompanied by recurrent episodes of nausea and vomiting. Patient reports his last bowel movement was just prior to onset of this pain and states it was normal soft and formed. Denies having any fevers, chills, diaphoresis, chest pain, palpitations, shortness of breath, hematemesis, melena, or hematochezia. Upon arrival to our facility, patient underwent evaluation in the emergency department. Vital signs upon arrival show blood pressure 158/84, heart rate 86, respiratory rate 18, temp 97.6 F, and SpO2 of 96% on room air. EKG completed showing normal sinus mechanism. Labs completed and reviewed. CBC showing leukocytosis with WBC count of 16.7. BMP showing high anion gap metabolic alkalosis with chloride of 97, bicarb of 30, and anion gap of 12. Blood glucose 149. Lactic acid 2.4. Liver profile showing hyperbilirubinemia with total bili of 2.0. Amylase and lipase normal findings. Urinalysis positive for protein, glucose, and ketones but negative for infection. CT abdomen and pelvis showing partial small bowel obstruction versus ileus likely from an enteritis, colonic diverticulosis without evidence for acute diverticulitis, and extensive calcified pleural plaques with nonobstructive punctate of left renal calculi. Physical exam: Patient seen and fully evaluated at bedside this morning. Patient reports he is doing "terrible" this morning. Patient reports return of abdominal distention, pain, and severe nausea. Patient reports he is unable to tolerate clear liquid diet. He denies any other complaints. He denies any further bowel movements or passing of flatus at this time. Vital signs reviewed and stable. General: Nontoxic, no distress and appears stated age. Derm: Skin warm and dry, normal coloration for ethnicity. Head: Atraumatic, normocephalic and symmetric. Eyes: EOM's intact, no lid lag, and anicteric sclera Mouth: no lip lesions, mucus membranes moist Cardiovascular: regular rate and rhythm with normal S1S2, no murmur, positive posterior tibial pulses bilaterally, and cap refill < 2 seconds. Lungs: Respirations even, regular, and unlabored on room air. Lungs CTA bilaterally, no rhonchi, no rales, no wheezing, and no accessory muscle usage. Abdominal: soft, nontender to palpation, no guarding, no appreciable organomegaly Ext: ROM intact. No gross muscle atrophy, no edema, no contractures Neuro: Speech clear, face symmetrical and CN II-XII grossly intact with no noted focal neuro deficits Psych: Alert and oriented to person, place, time, and situation. Appropriate and pleasant affect. Assessment and Plan of Care: Partial Small bowel obstruction vs ileus Leukocytosis, resolved -General Surgery following, discussed case with general surgery MAIL DISTRIBUTION CLERK and patient was sent patient for small bowel follow-through with Gastrografin -NG tube was not inserted as previously ordered as nausea and vomiting resolved and abdominal pain slowly improving, patient does report having 3 episodes of liquid stools since drinking Gastrografin. -Small bowel follow-through with Gastrografin negative for obstruction, likely partial small bowel obstruction versus ileus resolved. -Patient again with increasing abdominal distention/tightness and reports of severe nausea and abdominal pain. -Discussed with general surgery PA, patient placed back on strict NPO and order placed for repeat abdominal x-ray. -IV fluid hydration with 0.9% normal saline at 100 cc/h -Continue IV antibiotic with Zosyn 3.375 g every 8 hours -Continue close monitoring with repeat a.m. labs. -Telemetry monitoring -Antiemetic with Zofran 4 mg IVP every 8 hours and Compazine 10 mg IVP every 6 h ours as needed for nausea and vomiting uncontrolled by Zofran History of asbestosis -CT revealing extensive calcified pleural plaques, patient with known history of asbestosis. Denies shortness of breath or respiratory complaints at this time. Hypertension -Vital signs and continue daily medication regimen with losartan 25 mg daily. Hyperlipidemia -Continue daily medication regimen with atorvastatin 10 mg nightly. Data and imaging reviewed: Labs completed and reviewed. CBC showing resolution of leukocytosis with WBC count decreasing from initial 16.7 down to 6.46 and Macrocytosis with MCV of 100.0 otherwise normal findings. BMP unremarkable. Blood glucose 98. Magnesium 2.3. Liver profile unremarkable. Vital signs reviewed. Blood pressure 143/77, heart rate 60, respiratory rate 17, temp 98.1 F, and SpO2 of 96% on room air. CODE STATUS: Full code DVT prophylaxis: Lovenox Anticipated discharge date: Pending clinical course Anticipated discharge place: Home Patient was seen independently by Nurse Practitioner. This document was prepared using [employer] dictation software. Please allow for errors in silica dry press helper while rare they do occur. Sai Nassar NP rendered care for this patient independently, reviewed the findings and plan as documented in the note above and agree with plan. I did not physically speak with or examine the patient on this date. . Objective - Vital Signs Vital signs: Vital Signs Temp 98.1 F 10/17/24 07:33 Pulse 60 10/17/24 07:33 Resp 17 10/17/24 07:33 BP 143/77 10/17/24 07:33 Pulse Ox 96 10/17/24 07:33 FiO2 Intake & Output 10/16/24 10/17/24 10/17/24 18:59 06:59 18:59 Intake Total 590 Balance 590 Weight 86.183 kg Intake: Oral 590 Other: # Voids 1 - Labs CBC & Chem 7: 10/17/24 04:54 10/17/24 04:54 Labs: Abnormal Lab Results - Last 24 Hours (Table) 10/16/24 10/16/24 10/16/24 Range/Units 06:11 06:11 18:02 RBC 4.29 L (4.40-5.60) X 10*6/uL MCV 100.0 H (80.0-97.0) FL MCH 33.1 H (27.0-32.0) pg POC Glucose (mg/dL) 126 H (70-110) mg/dL Calcium 8.4 L (8.7-10.3) mg/dL Albumin 3.7 L (3.8-4.9) g/dL Albumin/Globulin Ratio 1.48 L (1.60-3.17) Ratio Microbiology - Last 24 Hours (Table) 10/15/24 15:25 Blood Culture - Preliminary Blood
[2024-10-17 18:12] LABS: Glucose,Whole Blood 87 mg/dL (70-110)
[2024-10-18 00:05] LABS: Glucose,Whole Blood 98 mg/dL (70-110)
[2024-10-18 05:57] LABS: Glucose,Whole Blood 86 mg/dL (70-110)
--- NOTE | 2024-10-18 08:17 | P.PN ---
Progress Note - Text Progress Note Date: 10/18/24 CHIEF COMPLAINT: Partial small bowel obstruction HISTORY OF PRESENT ILLNESS: No acute events overnight. Patient states he is passing gas and having bowel movements. States he feels much better today. PHYSICAL EXAM: VITAL SIGNS: Reviewed. GENERAL: Well-developed in no acute distress. HEENT: No sclera icterus. Extraocular movements grossly intact. Moist buccal mucosa. Head is atraumatic, normocephalic. ABDOMEN: Distended. Tenderness right mid abdomen and left lower quadrant NEUROLOGIC: Alert and oriented. Cranial nerves II through XII grossly intact. ASSESSMENT: 1. Partial small bowel obstruction. Small bowel follow-through with no evidence of bowel obstruction. 2. History of prior abdominal surgeries PLAN: -Patient advanced to Clear Liquid Diet -Lactulose twice daily for stool retention -Mylicon gas drops ordered for gas demonstrated throughout the colon and rectum -Encourage patient to ambulate in hallway [facility] [phone]
[2024-10-18 10:48] LABS: HCT 43.9 % (39.6-50.0); HGB 14.7 g/dL (13.0-17.0); MCH 33.2 pg (27.0-32.0); MCHC 33.5 g/dL (32.0-37.0); MCV 99.1 FL (80.0-97.0); Mean Platelet Volume 9.8 FL (9.5-12.2); NRBC Per 100 WBC 0 X 10*3/uL (0.00-0.01); Platelet Count 210 X 10*3/uL (140-440); RBC 4.43 X 10*6/uL (4.40-5.60); RDW 12.3 % (11.5-14.5); WBC 5.62 X 10*3/uL (4.50-10.00)
[2024-10-18 10:53] LABS: ALT 34 U/L (10-49); AST 25 U/L (14-35); Albumin 3.6 g/dL (3.8-4.9); Albumin/Globulin Ratio 1.44 Ratio (1.60-3.17); Alkaline Phosphatase 42 U/L (41-126); Blood Urea Nitrogen 10.9 mg/dL (9.0-27.0); Calcium 8.5 mg/dL (8.7-10.3); Carbon Dioxide 23.2 mmol/L (21.6-31.8); Chloride 109 mmol/L (96-109); Globulin 2.5 g/dL (1.6-3.3); Glucose 99 mg/dL (70-110); Magnesium 1.9 mg/dL (1.5-2.4); Potassium 4.9 mmol/L (3.5-5.5); Sodium 140 mmol/L (135-145); Total Bilirubin 0.6 mg/dL (0.3-1.2); Total Protein 6.1 g/dL (6.2-8.2)
[2024-10-18 12:30] LABS: Glucose,Whole Blood 97 mg/dL (70-110)
--- NOTE | 2024-10-18 13:58 | P.PN ---
Subjective Progress Note Date: 10/18/24 Hospital Course: Patient is a pleasant 74-year-old male with a past medical history of hypertension, hyperlipidemia, and previous small bowel obstruction status post bowel resection 35 years ago. Presented to the emergency department with a chief complaint of abdominal pain, nausea, and vomiting. Patient reports symptoms began approximately 10 PM last night. He reports experiencing abdominal distention over the past week and states last night experiencing diffuse abdominal pain worse in mid abdomen accompanied by recurrent episodes of nausea and vomiting. Patient reports his last bowel movement was just prior to onset of this pain and states it was normal soft and formed. Denies having any fevers, chills, diaphoresis, chest pain, palpitations, shortness of breath, hematemesis, melena, or hematochezia. Upon arrival to our facility, patient underwent evaluation in the emergency department. Vital signs upon arrival show blood pressure 158/84, heart rate 86, respiratory rate 18, temp 97.6 F, and SpO2 of 96% on room air. EKG completed showing normal sinus mechanism. Labs completed and reviewed. CBC showing leukocytosis with WBC count of 16.7. BMP showing high anion gap metabolic alkalosis with chloride of 97, bicarb of 30, and anion gap of 12. Blood glucose 149. Lactic acid 2.4. Liver profile showing hyperbilirubinemia with total bili of 2.0. Amylase and lipase normal findings. Urinalysis positive for protein, glucose, and ketones but negative for infection. CT abdomen and pelvis showing partial small bowel obstruction versus ileus likely from an enteritis, colonic diverticulosis without evidence for acute diverticulitis, and extensive calcified pleural plaques with nonobstructive punctate of left renal calculi. Physical exam: Patient seen and fully evaluated at bedside this morning. Patient reports he is doing much better this morning compared to yesterday and that his abdominal distention and pain has significantly improved. He was evaluated by general surgery this morning increasing diet to clear liquids and currently tolerating well. Discussed with patient and his brother at bedside encourage ambulation throughout the day today. Vital signs reviewed and stable. General: Nontoxic, no distress and appears stated age. Derm: Skin warm and dry, normal coloration for ethnicity. Head: Atraumatic, normocephalic and symmetric. Eyes: EOM's intact, no lid lag, and anicteric sclera Mouth: no lip lesions, mucus membranes moist Cardiovascular: regular rate and rhythm with normal S1S2, no murmur, positive posterior tibial pulses bilaterally, and cap refill < 2 seconds. Lungs: Respirations even, regular, and unlabored on room air. Lungs CTA bilaterally, no rhonchi, no rales, no wheezing, and no accessory muscle usage. Abdominal: soft, nontender to palpation, no guarding, no appreciable organomegaly Ext: ROM intact. No gross muscle atrophy, no edema, no contractures Neuro: Speech clear, face symmetrical and CN II-XII grossly intact with no noted focal neuro deficits Psych: Alert and oriented to person, place, time, and situation. Appropriate and pleasant affect. Assessment and Plan of Care: Partial Small bowel obstruction vs ileus Leukocytosis, resolved -General Surgery following, advancing diet to clear liquids at this time. -Small bowel follow-through with Gastrografin negative for obstruction, likely partial small bowel obstruction versus ileus resolved. -Repeat abdominal x-ray completed 10/17/2024 showing similar nonspecific bowel gas pattern with no evidence of obstruction confirming partial small bowel obstruction has resolved. -Patient encouraged to ambulate in halls. -Continue IV fluid hydration with 0.9% normal saline at 100 cc/h until diet is advanced -Continue IV antibiotic with Zosyn 3.375 g every 8 hours (day 5 of antibiotics) -Continue close monitoring with repeat a.m. labs. -Telemetry monitoring -Antiemetic with Zofran 4 mg IVP every 8 hours and Compazine 10 mg IVP every 6 hours as needed for nausea and vomiting uncontrolled by Zofran History of asbestosis -CT revealing extensive calcified pleural plaques, patient with known history of asbestosis. Denies shortness of breath or respiratory complaints at this time. Hypertension -Vital signs and continue daily medication regimen with losartan 25 mg daily. Hyperlipidemia -Continue daily medication regimen with atorvastatin 10 mg nightly. Data and imaging reviewed: Labs completed and reviewed. CBC and BMP unremarkable. Blood glucose 99. Magnesium 1.9. Liver profile also normal findings with exception of low albumin of 3.6. Vital signs reviewed. Blood pressure 149/83, heart rate 55, respiratory rate 16, temp 97.9 F, and SpO2 of 96% on room air. CODE STATUS: Full code DVT prophylaxis: Lovenox Anticipated discharge date: Possibly tomorrow, pending advancement of diet and how well patient tolerated Anticipated discharge place: Home Patient was seen independently by Nurse Practitioner. This document was prepared using [employer] dictation software. Please allow for errors in tar chaser while rare they do occur. Sai Nassar NP rendered care for this patient independently, reviewed the findings and plan as documented in the note above and agree with plan. I did not physically speak with or examine the patient on this date. . Objective - Vital Signs Vital signs: Vital Signs Temp 97.9 F 10/18/24 08:00 Pulse 55 L 10/18/24 08:00 Resp 16 10/18/24 08:00 BP 149/83 10/18/24 08:00 Pulse Ox 96 10/18/24 08:00 FiO2 Intake & Output 10/17/24 10/18/24 10/18/24 18:59 06:59 18:59 Intake Total 1300 Balance 1300 Intake: Intake, IV Titration 1300 Amount Piperacillin-Tazobactam 3 200 .375 gm In Sodium Chloride 0.9% 100 ml @ 25 mls/hr IVPB Q8H TED Rx#: [id number] Sodium Chloride 0.9% 1, 1100 000 ml @ 100 mls/hr IV . Q10H TED Rx#:[id number] Other: Voiding Method Bedside Commode Bedside Commode # Voids 2 2 # Bowel Movements 2 - Labs CBC & Chem 7: 10/18/24 06:51 10/18/24 06:51 Labs: Abnormal Lab Results - Last 24 Hours (Table) 10/17/24 Range/Units 04:54 Albumin/Globulin Ratio 1.44 L (1.60-3.17) Ratio Microbiology - Last 24 Hours (Table) 10/15/24 15:25 Blood Culture - Preliminary Blood
[2024-10-18 17:24] LABS: Glucose,Whole Blood 79 mg/dL (70-110)
[2024-10-18 20:28] LABS: Glucose,Whole Blood 96 mg/dL (70-110)
[2024-10-18] MEDS ORDERED: ALPRAZolam 0.5 MG TAB PO SCH (21:00)
[2024-10-19 07:38] LABS: Glucose,Whole Blood 94 mg/dL (70-110)
[2024-10-19 08:11] VITALS: BP 172/73; PULSE 52; RESP 17; TEMP 98.3
[2024-10-19 09:32] LABS: HCT 44.4 % (39.6-50.0); HGB 15.1 g/dL (13.0-17.0); MCV 96.9 FL (80.0-97.0); Mean Platelet Volume 10.1 FL (9.5-12.2); NRBC Per 100 WBC 0 X 10*3/uL (0.00-0.01); Platelet Count 205 X 10*3/uL (140-440); RBC 4.58 X 10*6/uL (4.40-5.60); RDW 12.3 % (11.5-14.5); WBC 5.28 X 10*3/uL (4.50-10.00)
--- NOTE | 2024-10-19 10:01 | P.DS ---
Providers Date of admission: 10/15/24 14:38 Expected date of discharge: 10/19/24 Attending physician: Tasha Chavez MD Consults: 10/15/24 15:02 Consult Physician Urgent Consulting Provider: Jonn Camacho Consult Reason/Comments: Partial SBO vs ileus Do you want consulting provider notified?: Yes Primary care physician: Bib Fleming Hospital Course: Discharge Diagnosis: Partial Small bowel obstruction, resolved. Small bowel follow-through with Gastrografin negative for obstruction and repeat abdominal x-ray also showing no evidence of obstruction. Patient having multiple bowel movements after being started on lactulose. He is tolerating a regular diet. Cleared by general surgery for discharge and medically optimized and stable for discharge at this time. Leukocytosis, resolved History of asbestosis CT revealing extensive calcified pleural plaques, patient with known history of asbestosis. Denies shortness of breath or respiratory complaints at this time. Hypertension Continue daily medication regimen with losartan 25 mg daily. Hyperlipidemia Continue daily medication regimen with atorvastatin 10 mg nightly. Hospital Course: Patient is a pleasant 74-year-old male with a past medical history of hypertension, hyperlipidemia, and previous small bowel obstruction status post bowel resection 35 years ago. Presented to the emergency department with a chief complaint of abdominal pain, nausea, and vomiting. Patient reports symptoms began approximately 10 PM last night. He reports experiencing abdominal distention over the past week and states last night experiencing diffuse abdominal pain worse in mid abdomen accompanied by recurrent episodes of nausea and vomiting. Patient reports his last bowel movement was just prior to onset of this pain and states it was normal soft and formed. Denies having any fevers, chills, diaphoresis, chest pain, palpitations, shortness of breath, hematemesis, melena, or hematochezia. Upon arrival to our facility, patient underwent evaluation in the emergency department. Vital signs upon arrival show blood pressure 158/84, heart rate 86, respiratory rate 18, temp 97.6 F, and SpO2 of 96% on room air. EKG completed showing normal sinus mechanism. Labs completed and reviewed. CBC showing leukocytosis with WBC count of 16.7. BMP showing high anion gap metabolic alkalosis with chloride of 97, bicarb of 30, and anion gap of 12. Blood glucose 149. Lactic acid 2.4. Liver profile showing hyperbilirubinemia with total bili of 2.0. Amylase and lipase normal findings. Urinalysis positive for protein, glucose, and ketones but negative for infection. CT abdomen and pelvis showing partial small bowel obstruction versus ileus likely from an enteritis, colonic diverticulosis without evidence for acute diverticulitis, and extensive calcified pleural plaques with nonobstructive punctate of left renal calculi. Patient was admitted under our services with consultation to general surgery. He was placed on bowel rest and diet slowly advanced. Small bowel follow-through with Gastrografin negative for obstruction and repeat abdominal x-ray also showing no evidence of obstruction. Patient having multiple bowel movements after being started on lactulose. He is tolerating a regular diet. Cleared by general surgery for discharge and medically optimized and stable for discharge at this time. Physical exam: Vital signs reviewed and stable. General: Nontoxic, no distress and appears stated age. Derm: Skin warm and dry, normal coloration for ethnicity. Head: Atraumatic, normocephalic and symmetric. Eyes: EOM's intact, no lid lag, and anicteric sclera Mouth: no lip lesions, mucus membranes moist Cardiovascular: regular rate and rhythm with normal S1S2, no murmur, positive posterior tibial pulses bilaterally, and cap refill < 2 seconds. Lungs: Respirations even, regular, and unlabored on room air. Lungs CTA bilaterally, no rhonchi, no rales, no wheezing, and no accessory muscle usage. Abdominal: soft, nontender to palpation, no guarding, no appreciable organome markus Ext: ROM intact. No gross muscle atrophy, no edema, no contractures Neuro: Speech clear, face symmetrical and CN II-XII grossly intact with no noted focal neuro deficits Psych: Alert and oriented to person, place, time, and situation. Appropriate and pleasant affect. A total of 34 minutes of time were spent preparing this complex discharge summary. Pt was discharged on 10/19/2024 at 9:58 AM. Patient was seen independently by Nurse Practitioner. This document was prepared using [employer] dictation software. Please allow for errors in frog or oyster farmworker while rare they do occur. Sai Nassar NP rendered care for this patient independently, reviewed the findings and plan as documented in the note above. I did not physically speak with or examine the patient on this date. Patient Condition at Discharge: Stable Plan - Discharge Summary Discharge Rx Participant: No New Discharge Prescriptions: New Lactulose [Cephulac] 30 gm PO BID 30 Days #1800 g Simethicone 40 mg/0.6 ml Drops [Mylicon Drops] 40 mg PO QID PRN 30 Days #1 dropper PRN Reason: Gi Upset Continue Rosuvastatin Calcium 5 mg PO Q48H Losartan Potassium [Cozaar] 25 mg PO DAILY Discharge Medication List Losartan Potassium [Cozaar] 25 mg PO DAILY 08/18/23 [History] Rosuvastatin Calcium 5 mg PO Q48H 08/18/23 [History] Lactulose [Cephulac] 30 gm PO BID 30 Days #1800 g 10/19/24 [Rx] Simethicone 40 mg/0.6 ml Drops [Mylicon Drops] 40 mg PO QID PRN 30 Days #1 dropper 10/19/24 [Rx] Follow up Appointment(s)/Referral(s): Bib Fleming MD [Primary Care Provider] - 1-2 days (please call for appointment.) Luke Reed DO [Medical Doctor] - 1 Week (please call for appointment.) Patient Instructions/Handouts: Diverticulitis Diet (DC), Bowel Obstruction (DC) Activity/Diet/Wound Care/Special Instructions: Activity: As tolerated. Take breaks as needed. Diet: Follow diverticulitis diet as provided in discharge instructions. Special Instructions: Take all of your medications as directed and remember to keep all of your doctor's appointments and follow-up as needed. Thank you for allowing us to participate in your care, it was truly a pleasure having you for our patient!!! Discharge Disposition: HOME SELF-CARE
[2024-10-19 10:32] LABS: ALT 38 U/L (10-49); AST 21 U/L (14-35); Albumin 3.8 g/dL (3.8-4.9); Albumin/Globulin Ratio 1.52 Ratio (1.60-3.17); Alkaline Phosphatase 42 U/L (41-126); BUN/Creat Ratio 6.45 Ratio (12.00-20.00); Blood Urea Nitrogen 7.1 mg/dL (9.0-27.0); Calcium 8.8 mg/dL (8.7-10.3); Carbon Dioxide 25.4 mmol/L (21.6-31.8); Chloride 106 mmol/L (96-109); Globulin 2.5 g/dL (1.6-3.3); Glucose 107 mg/dL (70-110); Magnesium 2.1 mg/dL (1.5-2.4); Potassium 4.4 mmol/L (3.5-5.5); Sodium 139 mmol/L (135-145); Total Bilirubin 0.7 mg/dL (0.3-1.2); Total Protein 6.3 g/dL (6.2-8.2)
--- NOTE | 2024-10-19 10:59 | P.PN ---
Progress Note - Text Progress Note Date: 10/19/24 CHIEF COMPLAINT: Partial small bowel obstruction HISTORY OF PRESENT ILLNESS: No acute events overnight. Patient states he is passing gas and having bowel movements. Tolerated CLD. PHYSICAL EXAM: VITAL SIGNS: Reviewed. GENERAL: Well-developed in no acute distress. HEENT: No sclera icterus. Extraocular movements grossly intact. Moist buccal mucosa. Head is atraumatic, normocephalic. ABDOMEN: Distended. Tenderness right mid abdomen and left lower quadrant NEUROLOGIC: Alert and oriented. Cranial nerves II through XII grossly intact. ASSESSMENT: 1. Partial small bowel obstruction. Small bowel follow-through with no evidence of bowel obstruction. 2. History of prior abdominal surgeries PLAN: -Patient advanced to Regular Diet -Ok for discharge if tolerates diet Luke Reed DO [facility] [phone]
== END 2024-10-19 11:00 | disposition home or self-care (01) | DRG 389 ==
LOC: EC 09:11 → 5NMEDONC 14:38
PROVIDERS: ADMIT Family Medicine; ATTEND Family Medicine
DX: K56.600 Partial intestinal obstruction, unspecified as to cause (principal); E87.3 Alkalosis; I10 Essential (primary) hypertension; E78.5 Hyperlipidemia, unspecified; D72.829 Elevated white blood cell count, unspecified; J92.0 Pleural plaque with presence of asbestos; Z90.49 Acquired absence of other specified parts of digestive tract; Z91.040 Latex allergy status
CPT/HCPCS: 36415; 74019; 74177; 74250; 80053; 81001; 82150; 83605; 83690; 83735; 85025; 85027; 87040; 93005; 96361; 96365; 96366; 96372; 96375; 99285